=== PATIENT | male | born 1950 | race Caucasian/White ===

== ENCOUNTER 2017-06-21 07:41 | Inpatient (IN) | payer OTHER, MEDICARE ==
[~2017-06-21] VITALS: Ht 175.3 cm; Wt 66.0 kg
[2017-06-21] MEDS ORDERED: SODIUM CHLORIDE 0.9% 1,000 ML IV ONE (08:11)
[2017-06-21] MEDS ORDERED: ONDANSETRON 2MG/ML, 2ML ONE (08:15)
[2017-06-21] MEDS ORDERED: FAMOTIDINE 20 MG/2 ML ONE (08:15)
[2017-06-21 08:28] LABS: HEMATOCRIT 53.4 % (39.2-51.8); HEMOGLOBIN 18.2 g/dL (13.7-18.0); WHITE BLOOD COUNT 18.4 x10^3/uL (3.4-10)
[2017-06-21] MEDS ORDERED: ONDANSETRON 2MG/ML, 2ML IVPush ONE (08:30)
[2017-06-21] MEDS ORDERED: SODIUM CHLORIDE 0.9% 1,000ML IVBOLUS ONE (08:30)
[2017-06-21] MEDS ORDERED: FAMOTIDINE 20 MG/2 ML IVP ONE (08:30)
[2017-06-21 08:41] LABS: ASPARTATE AMINO TRANSFERASE 60 U/L (15-37); BLOOD UREA NITROGEN 26 mg/dL (7-18)
[2017-06-21] MEDS ORDERED: POTASSIUM CHLORIDE 40 MEQ in SODIUM CHLORIDE 0.9% 500 ML IV ONE (09:30)
[2017-06-21] MEDS ORDERED: DOCUSATE 100 MG CAPSULE PO PRN (11:30)
[2017-06-21] MEDS ORDERED: BISACODYL 10 MG SUPP PR PRN (11:30)
[2017-06-21] MEDS ORDERED: ACETAMINOPHEN 325 MG TABLET PO PRN (11:30)
[2017-06-21] MEDS ORDERED: HYDROcodone/APAP 5/325 TABLET PO PRN (11:30)
[2017-06-21] MEDS ORDERED: morphine SULFATE 10 MG/ML, 1ML IVPush PRN (11:30)
[2017-06-21] MEDS ORDERED: POLYETHYLENE GLYCOL 17 GM PACKET PO PRN (11:30)
[2017-06-21] MEDS ORDERED: LABETALOL 5MG/ML, 20ML IVPush PRN (11:30)
[2017-06-21] MEDS ORDERED: PLEASE ENTER ALLERGIES MC SCH ×2 (11:30)
[2017-06-21] MEDS: ONDANSETRON 2MG/ML, 2ML IVPush PRN ×2 (12:59→19:44)
[2017-06-21] MEDS: NS + 20MEQ KCL 1,000 ML IV SCH ×2 (12:59→23:13)
[2017-06-21] MEDS: HEPARIN 5,000 UNITS/ML, 1ML SQ SCH ×2 (13:00→20:40)
[2017-06-21 13:35] VITALS: BP 144/78
[2017-06-21 13:42] LABS: RAPID INFLUENZA A Negative (Negative); RAPID INFLUENZA B Negative (Negative)
[2017-06-21] MEDS: POTASSIUM CHLORIDE 20 MEQ TAB.ER.PRT PO SCH (17:00)
[2017-06-21] MEDS ORDERED: DIPHENHYDRAMINE 50 MG/ML, 1ML IVPush PRN (17:30)
[2017-06-21 18:33] VITALS: BP 146/85
[2017-06-22 01:40] VITALS: BP 148/95
[2017-06-22] MEDS: ONDANSETRON 2MG/ML, 2ML IVPush PRN ×3 (01:45→19:19)
[2017-06-22 05:46] LABS: HEMATOCRIT 44.4 % (39.2-51.8); HEMOGLOBIN 15.2 g/dL (13.7-18.0); WHITE BLOOD COUNT 11.3 x10^3/uL (3.4-10)
[2017-06-22] MEDS: NS + 20MEQ KCL 1,000 ML IV SCH ×3 (05:56→21:37)
[2017-06-22] MEDS: HEPARIN 5,000 UNITS/ML, 1ML SQ SCH ×3 (05:57→21:37)
[2017-06-22 06:05] LABS: ASPARTATE AMINO TRANSFERASE 39 U/L (15-37); BLOOD UREA NITROGEN 21 mg/dL (7-18)
[2017-06-22 06:44] VITALS: BP 133/82
[2017-06-22] MEDS: POTASSIUM CHLORIDE 20 MEQ TAB.ER.PRT PO SCH ×2 (08:00→17:00)
[2017-06-22 15:01] VITALS: BP 158/82
[2017-06-22 19:44] VITALS: BP 118/67
[2017-06-23 00:39] VITALS: BP 127/70
[2017-06-23] MEDS: ONDANSETRON 2MG/ML, 2ML IVPush PRN ×3 (01:12→17:03)
[2017-06-23] MEDS: HEPARIN 5,000 UNITS/ML, 1ML SQ SCH ×3 (05:20→22:00)
[2017-06-23] MEDS: NS + 20MEQ KCL 1,000 ML IV SCH ×3 (05:20→23:01)
[2017-06-23 05:43] LABS: HEMATOCRIT 41.1 % (39.2-51.8); HEMOGLOBIN 14.2 g/dL (13.7-18.0); WHITE BLOOD COUNT 8.3 x10^3/uL (3.4-10)
[2017-06-23 05:51] LABS: ASPARTATE AMINO TRANSFERASE 27 U/L (15-37); BLOOD UREA NITROGEN 16 mg/dL (7-18)
[2017-06-23 07:20] VITALS: BP 149/75
[2017-06-23] MEDS: POTASSIUM CHLORIDE 20 MEQ TAB.ER.PRT PO SCH ×2 (10:05→15:01)
[2017-06-23 12:15] VITALS: BP 164/78
[2017-06-23 19:43] VITALS: BP 147/78
[2017-06-24 01:35] VITALS: BP 125/66
[2017-06-24] MEDS: NS + 20MEQ KCL 1,000 ML IV SCH ×2 (04:40→11:52)
[2017-06-24 05:29] LABS: HEMATOCRIT 42.7 % (39.2-51.8); HEMOGLOBIN 14.6 g/dL (13.7-18.0); WHITE BLOOD COUNT 8.6 x10^3/uL (3.4-10)
[2017-06-24 05:41] LABS: BLOOD UREA NITROGEN 14 mg/dL (7-18)
[2017-06-24 05:46] LABS: ASPARTATE AMINO TRANSFERASE 33 U/L (15-37)
[2017-06-24] MEDS: HEPARIN 5,000 UNITS/ML, 1ML SQ SCH ×2 (06:00→16:12)
[2017-06-24 06:50] VITALS: BP 130/74
[2017-06-24] MEDS: POTASSIUM CHLORIDE 20 MEQ TAB.ER.PRT PO SCH (08:00)
[2017-06-24] MEDS ORDERED: PANTOPRAZOLE 40 MG IV IVPush SCH (09:00)
[2017-06-24] MEDS ORDERED: MIDAZOLAM 1 MG/ML, 5ML ONE (10:04)
[2017-06-24] MEDS ORDERED: FENTANYL PF 100 MCG/2ML ONE (10:04)
[2017-06-24] MEDS: ONDANSETRON 2MG/ML, 2ML IVPush PRN (12:30)
[2017-06-24 12:35] VITALS: BP 162/96
[2017-06-24] MEDS ORDERED: SUCRALFATE 1 GM/10 ML UDC PO SCH (16:00)
[2017-06-24] MEDS ORDERED: SUCR1ORA5 PO (16:26)
[2017-06-24] MEDS ORDERED: PANT40TA3 PO (16:26)
== END 2017-06-24 18:51 | disposition home or self-care (01) | DRG 441 ==
LOC: ED 10:24 → EDIP 11:15 → 3NE 12:05
PROVIDERS: ADMIT Internal Medicine; ATTEND Internal Medicine
PROC: 0DB68ZX Excision of Stomach, Via Natural or Artificial Opening Endoscopic, Diagnostic (ICD-10-PCS; 2017-06-24)
PROC: 0DB98ZX Excision of Duodenum, Via Natural or Artificial Opening Endoscopic, Diagnostic (ICD-10-PCS; principal; 2017-06-24 10:30)
DX: K72.00 Acute and subacute hepatic failure without coma (principal); N17.0 Acute kidney failure with tubular necrosis; D75.1 Secondary polycythemia; E87.1 Hypo-osmolality and hyponatremia; E86.9 Volume depletion, unspecified; K20.9 Esophagitis, unspecified; E87.6 Hypokalemia; F17.210 Nicotine dependence, cigarettes, uncomplicated; D72.829 Elevated white blood cell count, unspecified; K29.60 Other gastritis without bleeding; K29.80 Duodenitis without bleeding; Z82.49 Family history of ischemic heart disease and other diseases of the circulatory system; Z80.9 Family history of malignant neoplasm, unspecified; Z90.49 Acquired absence of other specified parts of digestive tract; Z90.89 Acquired absence of other organs
CPT/HCPCS: 36415; 71010; 74245; 76700; 80053; 81001; 83690; 83735; 85025; 87046; 87086; 87324; 87400; 87798; 87899; 88305; 93005; 96361; 96365; 96366; 96375; 99152; 99153; J1644; J2250; J2405; J3010; J3480; J1200; J7030; J7040; S0028

== ENCOUNTER → 2018-03-22 | Outpatient (CLI) | payer OTHER, MEDICARE ==
[~2018-03-22] MED LIST: OMNIPAQUE 350 MG/ML, 100ML BOTTLE ONE; PANT40TA3 PO; SUCR1ORA5 PO
== END | disposition home or self-care (01) ==
LOC: CFH 09:42
PROVIDERS: ATTEND Nurse Practitioner Family
DX: K57.90 Diverticulosis of intestine, part unspecified, without perforation or abscess without bleeding (principal); N32.89 Other specified disorders of bladder; I70.0 Atherosclerosis of aorta; K76.0 Fatty (change of) liver, not elsewhere classified; F17.200 Nicotine dependence, unspecified, uncomplicated
CPT/HCPCS: 74177; 82565; Q9967

== ENCOUNTER 2018-05-01 13:57 | Emergency (ER) | payer OTHER, MEDICARE ==
[~2018-05-01] VITALS: Ht 170.2 cm; Wt 67.6 kg
[~2018-05-01 13:57] MED LIST changes: -OMNIPAQUE 350 MG/ML, 100ML BOTTLE ONE
[2018-05-01] MEDS ORDERED: ONDANSETRON 2MG/ML, 2ML IVPush ONE (14:30)
[2018-05-01] MEDS ORDERED: SODIUM CHLORIDE FLUSH 10ML SYR IVF ONE (14:30)
[2018-05-01] MEDS ORDERED: MORPHINE SULFATE 4 MG/ML, 1ML IVPush PRN (14:30)
[2018-05-01] MEDS ORDERED: SODIUM CHLORIDE 0.9% 1,000ML IVBOLUS ONE (14:30)
[2018-05-01] MEDS ORDERED: ONDANSETRON 2MG/ML, 2ML ONE (14:33)
[2018-05-01 14:49] LABS: BASOPHILS # (AUTO) 0.02 x10^3/uL (0-0.1); BASOPHILS % (AUTO) 0 % (0-1); EOSINOPHILS # (AUTO) 0.09 x10^3/uL (0-0.4); EOSINOPHILS % (AUTO) 1 % (1-7); LYMPHOCYTES # (AUTO) 2.25 x10^3/uL (1-3.4); LYMPHOCYTES % (AUTO) 19 % (22-44); MD NO; MEAN CORPUSCULAR HEMOGLOBIN 30.9 pg (27.5-34.5); MEAN CORPUSCULAR HGB CONC 33.3 g/dL (33.2-36.2); MEAN PLATELET VOLUME 9.4 fL (7.4-10.4); MONOCYTES # (AUTO) 0.78 x10^3/uL (0.2-0.8); MONOCYTES % (AUTO) 7 % (2-9); NEUTROPHILS # (AUTO) 8.67 x10^3/uL (1.8-6.8); NEUTROPHILS % (AUTO) 74 % (42-75); PLATELET COUNT 282 x10^3/uL (130-400); RED BLOOD COUNT 5.81 x10^6/uL (4.38-5.82); RED CELL DISTRIBUTION WIDTH 14.7 % (9.4-14.8)
[2018-05-01 14:59] LABS: ANION GAP 14 mmol/L (5-15); CALCIUM 9.2 mg/dL (8.5-10.1); CHLORIDE 99 mmol/L (98-107); CREATININE 1.37 mg/dL (0.7-1.3)
[2018-05-01 15:30] LABS: MICROSCOPIC INDICATED
[2018-05-01] MEDS ORDERED: METOCLOPRAMIDE 5 MG/ML, 2ML IVPush ONE (15:30)
[2018-05-01 15:31] LABS: CULTURE INDICATED? YES
[2018-05-01] MEDS ORDERED: METOCLOPRAMIDE 5 MG/ML, 2ML ONE (16:12)
[2018-05-01] MEDS ORDERED: OMNIPAQUE 350 MG/ML, 100ML BOTTLE ONE (16:45)
[2018-05-01 18:20] VITALS: BP 129/72
== END 2018-05-01 18:43 | disposition home or self-care (01) ==
LOC: ED 14:07
DX: R10.84 Generalized abdominal pain (principal); R11.2 Nausea with vomiting, unspecified; F17.200 Nicotine dependence, unspecified, uncomplicated
CPT/HCPCS: 36415; 74177; 80048; 81001; 82040; 85025; 87086; 96361; 96374; 96375; 99285; J2405; J2765; J7030; Q9967

== ENCOUNTER 2018-11-05 12:04 | Emergency (ER) | payer OTHER, MEDICARE ==
[~2018-11-05] VITALS: Ht 170.2 cm; Wt 70.0 kg
[2018-11-05] MEDS ORDERED: SODIUM CHLORIDE FLUSH 10ML SYR IVF ONE (12:30)
[2018-11-05] MEDS ORDERED: METOCLOPRAMIDE 5 MG/ML, 2ML IVPush ONE (12:30)
[2018-11-05] MEDS ORDERED: SODIUM CHLORIDE 0.9% 1,000ML IVBOLUS ONE ×2 (12:30→14:00)
[2018-11-05] MEDS ORDERED: METOCLOPRAMIDE 5 MG/ML, 2ML ONE (12:33)
--- NOTE | 2018-11-05 12:36 | NUR ---
DIARRHEA AND VOMITING SINCE MONDAY. PT NOW STARTING TO FEEL WEAK AND DEHYDRATED WITH DECREASED URINE OUTPUT. PT THROWING UP ON ARRIVAL TO ROOM FROM LOBBY.
[2018-11-05 12:41] LABS: BASOPHILS % (AUTO) 0 % (0-1); EOSINOPHILS # (AUTO) 0.05 x10^3/uL (0-0.4); EOSINOPHILS % (AUTO) 0 % (1-7); LYMPHOCYTES # (AUTO) 1.04 x10^3/uL (1-3.4); LYMPHOCYTES % (AUTO) 6 % (22-44); MD NO; MEAN CORPUSCULAR HEMOGLOBIN 31.3 pg (27.5-34.5); MEAN CORPUSCULAR HGB CONC 33.8 g/dL (33.2-36.2); MEAN CORPUSCULAR VOLUME 92.8 fL (81-97); MEAN PLATELET VOLUME 9.6 fL (7.4-10.4); MONOCYTES # (AUTO) 0.31 x10^3/uL (0.2-0.8); MONOCYTES % (AUTO) 2 % (2-9); NEUTROPHILS # (AUTO) 15.43 x10^3/uL (1.8-6.8); NEUTROPHILS % (AUTO) 92 % (42-75); PLATELET COUNT 254 x10^3/uL (130-400); RED BLOOD COUNT 6.43 x10^6/uL (4.38-5.82); RED CELL DISTRIBUTION WIDTH 15.1 % (9.4-14.8)
--- NOTE | 2018-11-05 12:58 | NUR ---
MEDICATED FOR N/V AND IV BOLUS INFUSING
[2018-11-05 13:06] LABS: CHLORIDE 107 mmol/L (98-107)
[2018-11-05 13:24] LABS: ALANINE AMINOTRANSFERASE 23 U/L (12-78); ALKALINE PHOSPHATASE 204 U/L (45-117); ANION GAP 18 mmol/L (5-15); BILIRUBIN,TOTAL 1.8 mg/dL (0.2-1.0); CALCIUM 10.6 mg/dL (8.5-10.1); CREATININE 1.82 mg/dL (0.7-1.3); TOTAL PROTEIN 9.9 g/dL (6.4-8.2)
[2018-11-05 13:29] LABS: TROPONIN I < 0.015 ng/mL (0.000-0.045)
[2018-11-05] MEDS ORDERED: SODIUM CHLORIDE 0.9% 1,000 ML IV ONE (14:00)
[2018-11-05] MEDS ORDERED: ONDANSETRON 2MG/ML, 2ML ONE (14:06)
[2018-11-05 14:10] VITALS: BP 166/93
--- NOTE | 2018-11-05 14:11 | NUR ---
ADDITIONALLY MEDICATED FOR N/V, SECOND LITER OF FLUIDS INFUSING AND PT TO CT
[2018-11-05] MEDS ORDERED: ONDANSETRON 2MG/ML, 2ML IVPush ONE (14:30)
[2018-11-05] MEDS ORDERED: METRONIDAZOLE PMX 500MG/100ML 100 ML ONE (15:16)
[2018-11-05 15:25] LABS: MICROSCOPIC INDICATED
[2018-11-05] MEDS ORDERED: METRONIDAZOLE PMX 500MG/100ML 100 ML IV ONE (15:30)
[2018-11-05] MEDS ORDERED: AMPICILLIN/SULBACTAM 3 GM in SODIUM CHLORIDE 0.9% 100 ML IV ONE (15:30)
[2018-11-05 15:32] LABS: CULTURE INDICATED? NO
--- NOTE | 2018-11-05 16:34 | NUR ---
PT RESTING WITH EYES CLOSED. HAS NOT VOMITED SINCE LAST MEDICATED. SECOND ANTIBIOTIC STARTED.
== END 2018-11-05 17:20 | disposition home or self-care (01) ==
LOC: ED 13:29
DX: A09 Infectious gastroenteritis and colitis, unspecified (principal); E86.9 Volume depletion, unspecified; E86.0 Dehydration; N28.9 Disorder of kidney and ureter, unspecified
CPT/HCPCS: 36415; 74022; 74176; 80053; 81001; 83605; 83690; 84484; 85025; 93005; 96361; 96365; 96368; 96375; 99284; J0295; J2405; J2765; J7030

== ENCOUNTER 2018-11-07 14:28 | Inpatient (IN) | payer OTHER, MEDICARE ==
[~2018-11-07] VITALS: Ht 170.2 cm; Wt 72.3 kg
--- NOTE | 2018-11-07 14:49 | NUR ---
SHRIMP PICKER: PT CALLED FOR ROOM, IN LAB OFFICE FOR BLOOD DRAW.
--- NOTE | 2018-11-07 14:51 | NUR ---
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
[2018-11-07 15:13] LABS: ALBUMIN 3.8 g/dL (3.4-5.0); ANION GAP 10 mmol/L (5-15); CALCIUM 8.9 mg/dL (8.5-10.1); CHLORIDE 105 mmol/L (98-107); MD NO
--- NOTE | 2018-11-07 15:16 | NUR ---
FIRST CONTACT WITH PT. PT SITTING UP IN [place] NOTED. PT REPORTS CONTINUED NAUSEA/VOMITING DESPITE MEDICATIONS RX'D ON 11/05. PT REPORTS BEING SEEN IN ED FOR SAME 11/05, DX WITH COLITIS AND ACUTE RENAL FAILURE AND ADVISED FOR ADMIT. PT REPORTS HE REFUSED ADMIT BECAUSE "IT WAS TOO COLD IN HERE". RX'D FLAGYL, AMOXICILLIN AND ZOFRAN PER . PT STATES "I'VE BEEN TRYING TO TAKE IT, I CAN'T HOLD IT DOWN". BP/SPO2 MONITOR IN PLACE. ERP AT BEDSIDE FOR INITIAL ASSESSMENT.
[2018-11-07 15:19] LABS: ALANINE AMINOTRANSFERASE 19 U/L (12-78); ALKALINE PHOSPHATASE 123 U/L (45-117); BILIRUBIN,TOTAL 1.7 mg/dL (0.2-1.0); CREATININE 0.98 mg/dL (0.7-1.3); TOTAL PROTEIN 7.7 g/dL (6.4-8.2)
--- NOTE | 2018-11-07 15:19 | NUR ---
REPORT TO ЕЛЕНА PANDA
[2018-11-07] MEDS ORDERED: GABAPENTIN (15:20)
[2018-11-07] MEDS ORDERED: ONDA4TAB7 PO (15:20)
[2018-11-07] MEDS ORDERED: AMOXICILLIN (15:20)
[2018-11-07] MEDS ORDERED: FLAGYL (15:20)
--- NOTE | 2018-11-07 15:22 | NUR ---
REPORT FROM TONI CHRISTIANSEN, ASSUME CARE OF PT AT THIS TIME.
[2018-11-07 15:24] LABS: BASOPHILS # (AUTO) 0.04 x10^3/uL (0-0.1); BASOPHILS % (AUTO) 0 % (0-1); EOSINOPHILS # (AUTO) 0.07 x10^3/uL (0-0.4); EOSINOPHILS % (AUTO) 1 % (1-7); LYMPHOCYTES # (AUTO) 1.69 x10^3/uL (1-3.4); LYMPHOCYTES % (AUTO) 17 % (22-44); MEAN CORPUSCULAR HEMOGLOBIN 31.7 pg (27.5-34.5); MEAN CORPUSCULAR HGB CONC 34.1 g/dL (33.2-36.2); MEAN CORPUSCULAR VOLUME 93.1 fL (81-97); MEAN PLATELET VOLUME 9.1 fL (7.4-10.4); MONOCYTES # (AUTO) 0.66 x10^3/uL (0.2-0.8); MONOCYTES % (AUTO) 7 % (2-9); NEUTROPHILS # (AUTO) 7.71 x10^3/uL (1.8-6.8); NEUTROPHILS % (AUTO) 76 % (42-75); PLATELET COUNT 217 x10^3/uL (130-400); RED CELL DISTRIBUTION WIDTH 14.8 % (9.4-14.8)
[2018-11-07] MEDS ORDERED: ONDANSETRON 2MG/ML, 2ML IVPush ONE (15:30)
[2018-11-07] MEDS ORDERED: SODIUM CHLORIDE 0.9% 1,000ML IVBOLUS ONE (15:30)
[2018-11-07] MEDS ORDERED: SODIUM CHLORIDE FLUSH 10ML SYR IVF ONE (15:30)
[2018-11-07] MEDS ORDERED: ONDANSETRON 2MG/ML, 2ML ONE (15:59)
--- NOTE | 2018-11-07 16:15 | NUR ---
PT MEDICATED WITH ZOFRAN WITHOUT RELIEF-ERP NOTIFIED. URINE COLLECTED/SENT TO LAB. ERP IN TO REASSESS. CALL LIGHT WITHIN REACH.
[2018-11-07] MEDS ORDERED: PROMETHAZINE 25 MG/ML, 1ML ONE (16:21)
[2018-11-07] MEDS ORDERED: MORPHINE SULFATE 4 MG/ML, 1ML ONE (16:22)
--- NOTE | 2018-11-07 16:27 | NUR ---
PT MEDICATED FOR 4/10 ABD PAIN AND NAUSEA. AWAITING UA RESULTS AND POSSIBLE ADMISSION. VSS/UPDATED IN COMPUTER.
[2018-11-07] MEDS ORDERED: morphine SULFATE 10 MG/ML, 1ML IVPush ONE (16:30)
[2018-11-07] MEDS ORDERED: PROMETHAZINE 25 MG/ML, 1ML IM ONE (16:30)
[2018-11-07 16:49] LABS: MICROSCOPIC AUTO
[2018-11-07 16:50] LABS: CULTURE INDICATED? NO
[2018-11-07] MEDS ORDERED: hydrALAzine 20 MG/ML, 1ML IVPush PRN (17:00)
[2018-11-07] MEDS ORDERED: ONDANSETRON 2MG/ML, 2ML IVPush PRN (17:00)
[2018-11-07] MEDS ORDERED: morphine SULFATE 10 MG/ML, 1ML IVPush PRN (17:00)
[2018-11-07] MEDS ORDERED: ACETAMINOPHEN 325 MG TABLET PO PRN (17:00)
--- NOTE | 2018-11-07 17:01 | NUR ---
ATTEMPT TO CALL REPORT, RN NOT AVAILABLE AND WILL CALL BACK.
[2018-11-07 18:36] VITALS: BP 172/96
[2018-11-07] MEDS: NICOTINE 14MG/24 HR PATCH.TD24 TD SCH (19:53)
[2018-11-07] MEDS: GABAPENTIN 100 MG CAPSULE PO SCH (19:53)
[2018-11-07] MEDS: D5%-0.45NACL+KCL 20MEQ 1,000 ML IV SCH (19:54)
[2018-11-07] MEDS: ENOXAPARIN 40 MG/0.4 ML SQ SCH (19:55)
[2018-11-07] MEDS: CEFTRIAXONE PMX 1GM/50ML 50 ML IV SCH (19:56)
[2018-11-07 20:40] VITALS: BP 148/77
[2018-11-07] MEDS: METRONIDAZOLE PMX 500MG/100ML 100 ML IV SCH (21:19)
[2018-11-07] MEDS: PROMETHAZINE 25 MG/ML, 1ML IM PRN (21:49)
[2018-11-08 01:40] VITALS: BP 138/87
[2018-11-08] MEDS: D5%-0.45NACL+KCL 20MEQ 1,000 ML IV SCH ×2 (05:21→13:49)
[2018-11-08] MEDS: PROMETHAZINE 25 MG/ML, 1ML IM PRN ×2 (05:21→19:38)
[2018-11-08] MEDS: METRONIDAZOLE PMX 500MG/100ML 100 ML IV SCH ×3 (05:21→21:10)
[2018-11-08 05:45] LABS: BASOPHILS # (AUTO) 0.03 x10^3/uL (0-0.1); BASOPHILS % (AUTO) 0 % (0-1); EOSINOPHILS % (AUTO) 1 % (1-7); LYMPHOCYTES # (AUTO) 1.67 x10^3/uL (1-3.4); LYMPHOCYTES % (AUTO) 15 % (22-44); MD NO; MEAN CORPUSCULAR HEMOGLOBIN 31.8 pg (27.5-34.5); MEAN CORPUSCULAR HGB CONC 34.2 g/dL (33.2-36.2); MEAN CORPUSCULAR VOLUME 92.9 fL (81-97); MEAN PLATELET VOLUME 9.1 fL (7.4-10.4); MONOCYTES # (AUTO) 0.84 x10^3/uL (0.2-0.8); MONOCYTES % (AUTO) 8 % (2-9); NEUTROPHILS # (AUTO) 8.53 x10^3/uL (1.8-6.8); NEUTROPHILS % (AUTO) 76 % (42-75); PLATELET COUNT 189 x10^3/uL (130-400); RED BLOOD COUNT 4.89 x10^6/uL (4.38-5.82)
[2018-11-08 06:00] LABS: CHLORIDE 108 mmol/L (98-107)
[2018-11-08 06:01] LABS: ALBUMIN 3.3 g/dL (3.4-5.0); ANION GAP 8 mmol/L (5-15); CALCIUM 8.6 mg/dL (8.5-10.1)
[2018-11-08 06:06] LABS: ALANINE AMINOTRANSFERASE 15 U/L (12-78); ALKALINE PHOSPHATASE 107 U/L (45-117); BILIRUBIN, DIRECT 0.2 mg/dL (0.1-0.2); BILIRUBIN,INDIRECT 1.3 mg/dL (0.0-2.0); BILIRUBIN,TOTAL 1.5 mg/dL (0.2-1.0); CREATININE 0.84 mg/dL (0.7-1.3); TOTAL PROTEIN 6.6 g/dL (6.4-8.2)
[2018-11-08 07:09] VITALS: BP 135/77
[2018-11-08] MEDS: GABAPENTIN 100 MG CAPSULE PO SCH ×3 (08:36→19:42)
[2018-11-08 13:20] VITALS: BP 121/65
[2018-11-08 13:51] VITALS: BP 138/72
[2018-11-08] MEDS: NICOTINE 14MG/24 HR PATCH.TD24 TD SCH (16:23)
[2018-11-08 16:39] LABS: CLOSTRIDIUM DIFFICILE ANTIGEN POSITIVE; CLOSTRIDIUM DIFFICILE TOXIN NEGATIVE (Negative)
[2018-11-08] MEDS ORDERED: OMNIPAQUE 350 MG/ML, 100ML BOTTLE ONE (18:35)
[2018-11-08 19:01] VITALS: BP 152/62
[2018-11-08] MEDS: ENOXAPARIN 40 MG/0.4 ML SQ SCH (19:38)
[2018-11-08] MEDS: CEFTRIAXONE PMX 1GM/50ML 50 ML IV SCH (19:38)
[2018-11-08] MEDS: VANCOMYCIN 50 MG/ML ORAL SUSP PO SCH (19:38)
[2018-11-08] MEDS: HYDROcodone/APAP 5/325 TABLET PO PRN (21:11)
[2018-11-09] MEDS: VANCOMYCIN 50 MG/ML ORAL SUSP PO SCH ×2 (01:11→08:44)
[2018-11-09] MEDS: D5%-0.45NACL+KCL 20MEQ 1,000 ML IV SCH ×3 (01:11→21:34)
[2018-11-09 01:20] VITALS: BP 127/83
[2018-11-09] MEDS: METRONIDAZOLE PMX 500MG/100ML 100 ML IV SCH (05:24)
[2018-11-09] MEDS: PROMETHAZINE 25 MG/ML, 1ML IM PRN ×3 (05:32→21:33)
[2018-11-09 06:01] LABS: BASOPHILS # (AUTO) 0.02 x10^3/uL (0-0.1); BASOPHILS % (AUTO) 0 % (0-1); EOSINOPHILS # (AUTO) 0.24 x10^3/uL (0-0.4); EOSINOPHILS % (AUTO) 3 % (1-7); LYMPHOCYTES # (AUTO) 1.59 x10^3/uL (1-3.4); LYMPHOCYTES % (AUTO) 21 % (22-44); MD NO; MEAN CORPUSCULAR HEMOGLOBIN 31.5 pg (27.5-34.5); MEAN CORPUSCULAR HGB CONC 33.7 g/dL (33.2-36.2); MEAN CORPUSCULAR VOLUME 93.4 fL (81-97); MEAN PLATELET VOLUME 9.3 fL (7.4-10.4); MONOCYTES # (AUTO) 0.55 x10^3/uL (0.2-0.8); MONOCYTES % (AUTO) 7 % (2-9); NEUTROPHILS # (AUTO) 5.01 x10^3/uL (1.8-6.8); NEUTROPHILS % (AUTO) 68 % (42-75); PLATELET COUNT 169 x10^3/uL (130-400); RED BLOOD COUNT 4.78 x10^6/uL (4.38-5.82); RED CELL DISTRIBUTION WIDTH 15.1 % (9.4-14.8)
[2018-11-09 06:10] LABS: ALBUMIN 3.1 g/dL (3.4-5.0); ANION GAP 7 mmol/L (5-15); CALCIUM 8.3 mg/dL (8.5-10.1); CHLORIDE 107 mmol/L (98-107)
[2018-11-09 06:15] LABS: ALANINE AMINOTRANSFERASE 13 U/L (12-78); ALKALINE PHOSPHATASE 95 U/L (45-117); BILIRUBIN,TOTAL 1.4 mg/dL (0.2-1.0); CREATININE 0.85 mg/dL (0.7-1.3); TOTAL PROTEIN 6.2 g/dL (6.4-8.2)
[2018-11-09 08:00] VITALS: BP 166/84
[2018-11-09] MEDS: GABAPENTIN 100 MG CAPSULE PO SCH (08:44)
[2018-11-09 13:11] VITALS: BP 145/84
[2018-11-09] MEDS ORDERED: GABAPENTIN 100 MG CAPSULE PO PRN (14:30)
[2018-11-09] MEDS: NICOTINE 14MG/24 HR PATCH.TD24 TD SCH (17:00)
[2018-11-09] MEDS: ENOXAPARIN 40 MG/0.4 ML SQ SCH (21:34)
[2018-11-09 21:36] VITALS: BP 148/76
[2018-11-10 00:40] VITALS: BP 148/76
[2018-11-10] MEDS: D5%-0.45NACL+KCL 20MEQ 1,000 ML IV SCH ×2 (05:04→20:13)
[2018-11-10 06:09] LABS: CHLORIDE 108 mmol/L (98-107)
[2018-11-10 06:18] LABS: ALANINE AMINOTRANSFERASE 13 U/L (12-78); ALBUMIN 3.2 g/dL (3.4-5.0); ALKALINE PHOSPHATASE 94 U/L (45-117); ANION GAP 8 mmol/L (5-15); BILIRUBIN,TOTAL 1.5 mg/dL (0.2-1.0); CALCIUM 8.3 mg/dL (8.5-10.1); CREATININE 0.91 mg/dL (0.7-1.3); TOTAL PROTEIN 6.3 g/dL (6.4-8.2)
[2018-11-10 06:42] VITALS: BP 135/78
[2018-11-10] MEDS: PANTOPRAZOLE 40 MG IV IV SCH ×2 (08:59→22:35)
[2018-11-10] MEDS ORDERED: FENTANYL PF 100 MCG/2ML ONE (09:22)
[2018-11-10] MEDS ORDERED: MIDAZOLAM 1 MG/ML, 5ML ONE ×2 (09:23)
[2018-11-10] MEDS: SUCRALFATE 1 GM/10 ML UDC PO SCH ×3 (12:00→22:35)
[2018-11-10 12:22] VITALS: BP 114/71
[2018-11-10] MEDS: HYDROcodone/APAP 5/325 TABLET PO PRN ×2 (15:47→22:35)
[2018-11-10] MEDS: NICOTINE 14MG/24 HR PATCH.TD24 TD SCH (16:59)
[2018-11-10 19:26] VITALS: BP 150/71
[2018-11-11 00:32] VITALS: BP 136/69
[2018-11-11] MEDS: D5%-0.45NACL+KCL 20MEQ 1,000 ML IV SCH ×2 (04:43→12:00)
[2018-11-11 05:54] LABS: BASOPHILS # (AUTO) 0.04 x10^3/uL (0-0.1); BASOPHILS % (AUTO) 1 % (0-1); EOSINOPHILS # (AUTO) 0.44 x10^3/uL (0-0.4); EOSINOPHILS % (AUTO) 7 % (1-7); LYMPHOCYTES # (AUTO) 2.33 x10^3/uL (1-3.4); LYMPHOCYTES % (AUTO) 35 % (22-44); MD NO; MEAN CORPUSCULAR HEMOGLOBIN 31.1 pg (27.5-34.5); MEAN CORPUSCULAR HGB CONC 33.2 g/dL (33.2-36.2); MEAN CORPUSCULAR VOLUME 93.5 fL (81-97); MEAN PLATELET VOLUME 9.5 fL (7.4-10.4); MONOCYTES # (AUTO) 0.52 x10^3/uL (0.2-0.8); MONOCYTES % (AUTO) 8 % (2-9); NEUTROPHILS # (AUTO) 3.31 x10^3/uL (1.8-6.8); NEUTROPHILS % (AUTO) 50 % (42-75); PLATELET COUNT 190 x10^3/uL (130-400); RED BLOOD COUNT 4.64 x10^6/uL (4.38-5.82); RED CELL DISTRIBUTION WIDTH 14.8 % (9.4-14.8)
[2018-11-11 05:58] LABS: ALANINE AMINOTRANSFERASE 18 U/L (12-78); ALBUMIN 2.9 g/dL (3.4-5.0); ANION GAP 5 mmol/L (5-15); CALCIUM 8.5 mg/dL (8.5-10.1); CHLORIDE 109 mmol/L (98-107); CREATININE 0.93 mg/dL (0.7-1.3)
[2018-11-11 06:01] LABS: ALKALINE PHOSPHATASE 83 U/L (45-117); TOTAL PROTEIN 5.8 g/dL (6.4-8.2)
[2018-11-11] MEDS: SUCRALFATE 1 GM/10 ML UDC PO SCH ×3 (07:00→16:00)
[2018-11-11 07:05] VITALS: BP 139/88
[2018-11-11] MEDS ORDERED: SINCALIDE (KINEVAC) 5 MCG ONE (08:27)
[2018-11-11] MEDS: PANTOPRAZOLE 40 MG IV IV SCH (10:15)
[2018-11-11] MEDS ORDERED: PANT40TA3 PO (13:56)
[2018-11-11] MEDS ORDERED: ONDA4TAB7 PO (13:56)
[2018-11-11] MEDS ORDERED: SUCR1ORA5 PO (13:56)
[2018-11-11 14:08] VITALS: BP 148/88
[2018-11-11] MEDS: NICOTINE 14MG/24 HR PATCH.TD24 TD SCH (16:07)
== END 2018-11-11 16:26 | disposition home or self-care (01) | DRG 392 ==
LOC: ED 15:17 → EDIP 15:18 → ED 16:09 → OBSVTOIN 16:27 → 3NE 17:01
PROVIDERS: ADMIT Orthopaedic Surgery; ATTEND Orthopaedic Surgery
PROC: 0DJ08ZZ Inspection of Upper Intestinal Tract, Via Natural or Artificial Opening Endoscopic (ICD-10-PCS; principal; 2018-11-10 11:30)
DX: K21.0 Gastro-esophageal reflux disease with esophagitis (principal); E86.0 Dehydration; F17.210 Nicotine dependence, cigarettes, uncomplicated; J06.9 Acute upper respiratory infection, unspecified; K57.90 Diverticulosis of intestine, part unspecified, without perforation or abscess without bleeding; E80.6 Other disorders of bilirubin metabolism; N28.9 Disorder of kidney and ureter, unspecified; Z80.3 Family history of malignant neoplasm of breast; Z80.52 Family history of malignant neoplasm of bladder
CPT/HCPCS: 36415; 84145; 87046; 87427; 96361; 99285; J3370; 74177; 78227; 80053; 81001; 82247; 82248; 83605; 83690; 85025; 87040; 87324; 87493; 87798; 89055; 96372; 96374; 96375; 99152; 99153; G0378; J0696; J1650; J2250; J2405; J2550; J3010; Q9967; A9537; C9113; C9898; J0360; J2270; J2805; J3480; J7030

== ENCOUNTER 2018-12-28 12:03 | Inpatient (IN) | payer OTHER, MEDICARE ==
[~2018-12-28] VITALS: Ht 170.2 cm; Wt 73.0 kg
[~2018-12-28 12:03] MED LIST changes: +AMOXICILLIN; +FLAGYL; +GABAPENTIN; +ONDA4TAB7 PO
--- NOTE | 2018-12-28 12:25 | NUR ---
PT C/O N/V FOR 3 DAYS WITH NO BM FOR THREE DAYS. PT ON MONITOR. WAITING FOR ORDERS.
[2018-12-28] MEDS ORDERED: ONDANSETRON 2MG/ML, 2ML IVPush ONE (12:30)
[2018-12-28] MEDS ORDERED: SODIUM CHLORIDE FLUSH 10ML SYR IVF ONE (12:30)
[2018-12-28] MEDS ORDERED: MAALOX/HYOSCYAMINE/LIDOCAINE 45 ML BTL ONE (12:36)
[2018-12-28] MEDS ORDERED: ONDANSETRON 2MG/ML, 2ML ONE (12:36)
[2018-12-28] MEDS ORDERED: FAMOTIDINE 20 MG/2 ML ONE (12:36)
[2018-12-28 12:46] LABS: BASOPHILS # (AUTO) 0.09 x10^3/uL (0-0.1); BASOPHILS % (AUTO) 1 % (0-1); EOSINOPHILS # (AUTO) 0.03 x10^3/uL (0-0.4); EOSINOPHILS % (AUTO) 0 % (1-7); LYMPHOCYTES % (AUTO) 15 % (22-44); MD NO; MEAN CORPUSCULAR HEMOGLOBIN 31.9 pg (27.5-34.5); MEAN CORPUSCULAR HGB CONC 33.3 g/dL (33.2-36.2); MEAN CORPUSCULAR VOLUME 95.8 fL (81-97); MEAN PLATELET VOLUME 9.3 fL (7.4-10.4); MONOCYTES % (AUTO) 7 % (2-9); NEUTROPHILS % (AUTO) 77 % (42-75); PLATELET COUNT 276 x10^3/uL (130-400); RED BLOOD COUNT 5.75 x10^6/uL (4.38-5.82)
[2018-12-28 12:55] LABS: ALANINE AMINOTRANSFERASE 15 U/L (12-78); ALBUMIN 4.6 g/dL (3.4-5.0); ANION GAP 11 mmol/L (5-15); CALCIUM 9.3 mg/dL (8.5-10.1); CHLORIDE 99 mmol/L (98-107); CREATININE 1.46 mg/dL (0.7-1.3)
[2018-12-28 12:57] LABS: ALKALINE PHOSPHATASE 132 U/L (45-117); BILIRUBIN,TOTAL 2.8 mg/dL (0.2-1.0); TOTAL PROTEIN 8.9 g/dL (6.4-8.2)
[2018-12-28] MEDS ORDERED: MAALOX/HYOSCYAMINE/LIDOCAINE 45 ML BTL PO ONE (13:00)
[2018-12-28] MEDS ORDERED: FAMOTIDINE 20 MG TABLET PO ONE (13:00)
[2018-12-28] MEDS ORDERED: FAMOTIDINE 20 MG/2 ML IVPush ONE (13:00)
[2018-12-28] MEDS ORDERED: SODIUM CHLORIDE 0.9% 1,000ML IVBOLUS ONE (13:30)
[2018-12-28 13:59] LABS: MICROSCOPIC INDICATED
[2018-12-28 14:03] LABS: CULTURE INDICATED? NO
--- NOTE | 2018-12-28 14:04 | NUR ---
3 P'S ADDRESSED. PT RESTING IN BED IN NAD. VSS. WAITING FOR RESULTS.
--- NOTE | 2018-12-28 14:18 | NUR ---
CHART UP FOR MD RECHECK. PT AWARE.
[2018-12-28] MEDS ORDERED: GABA300C10 PO (14:28)
[2018-12-28] MEDS ORDERED: PANTOPRAZOLE 40 MG IV IVPush SCH (14:30)
[2018-12-28] MEDS ORDERED: PANTOPRAZOLE 40 MG IV ONE (14:34)
[2018-12-28 16:34] VITALS: BP 140/85
[2018-12-28] MEDS: D5%-0.45% NACL 1,000 ML IV SCH (17:05)
[2018-12-28] MEDS ORDERED: ONDANSETRON ODT 4 MG PO PRN (17:30)
[2018-12-28] MEDS ORDERED: LABETALOL 5 MG/ML SYRINGE IVPush PRN (17:30)
[2018-12-28] MEDS ORDERED: ONDANSETRON 2MG/ML, 2ML IVPush PRN (17:30)
[2018-12-28] MEDS ORDERED: GABAPENTIN 300 MG CAPSULE PO PRN (17:30)
[2018-12-28 18:16] LABS: FREE T4 (FREE THYROXINE) 1.48 ng/dL (0.76-1.46)
[2018-12-28 18:53] VITALS: BP 125/76
[2018-12-28 20:45] LABS: CHLORIDE,URINE RANDOM 29 mmol/L; POTASSIUM,URINE RANDOM 20 mmol/L; SODIUM,URINE RANDOM 27 mmol/L
[2018-12-28] MEDS: PANTOPRAZOLE 40 MG IV IVPush SCH (21:23)
[2018-12-29 00:35] VITALS: BP 134/79
[2018-12-29] MEDS: D5%-0.45% NACL 1,000 ML IV SCH ×3 (02:48→17:11)
[2018-12-29 06:11] LABS: BASOPHILS # (AUTO) 0.04 x10^3/uL (0-0.1); BASOPHILS % (AUTO) 0 % (0-1); EOSINOPHILS # (AUTO) 0.04 x10^3/uL (0-0.4); EOSINOPHILS % (AUTO) 0 % (1-7); LYMPHOCYTES # (AUTO) 2.14 x10^3/uL (1-3.4); LYMPHOCYTES % (AUTO) 21 % (22-44); MD NO; MEAN CORPUSCULAR HEMOGLOBIN 32.3 pg (27.5-34.5); MEAN CORPUSCULAR HGB CONC 33.6 g/dL (33.2-36.2); MEAN CORPUSCULAR VOLUME 96.2 fL (81-97); MEAN PLATELET VOLUME 9.7 fL (7.4-10.4); MONOCYTES # (AUTO) 0.92 x10^3/uL (0.2-0.8); MONOCYTES % (AUTO) 9 % (2-9); NEUTROPHILS # (AUTO) 7.21 x10^3/uL (1.8-6.8); NEUTROPHILS % (AUTO) 70 % (42-75); PLATELET COUNT 218 x10^3/uL (130-400); RED CELL DISTRIBUTION WIDTH 15.1 % (9.4-14.8)
[2018-12-29 06:13] LABS: CHLORIDE 104 mmol/L (98-107)
[2018-12-29 06:30] LABS: ALANINE AMINOTRANSFERASE 12 U/L (12-78); ALBUMIN 3.5 g/dL (3.4-5.0); ALKALINE PHOSPHATASE 100 U/L (45-117); ANION GAP 7 mmol/L (5-15); BILIRUBIN,TOTAL 2.6 mg/dL (0.2-1.0); CALCIUM 8.3 mg/dL (8.5-10.1); CREATININE 1.01 mg/dL (0.7-1.3); THYROID STIMULATING HORMONE 0.289 mIU/L (0.358-3.740); TOTAL PROTEIN 6.8 g/dL (6.4-8.2)
[2018-12-29 07:55] VITALS: BP 132/73
[2018-12-29] MEDS ORDERED: POTASSIUM CHLORIDE 20 MEQ TAB.ER.PRT PO ONE ×2 (08:00→11:35)
[2018-12-29] MEDS: PANTOPRAZOLE 40 MG IV IVPush SCH (08:04)
[2018-12-29] MEDS ORDERED: PROMETHAZINE 25 MG/ML, 1ML IM PRN (09:30)
[2018-12-29 14:13] VITALS: BP 141/65
[2018-12-29 18:58] VITALS: BP 134/75
[2018-12-29 20:16] LABS: AMPHETAMINE SCREEN, URINE Negative (Negative); BARBITURATE SCREEN, URINE Negative (Negative); BENZODIAZEPINE SCREEN, URINE Negative (Negative); CANNABINOID SCREEN, URINE Positive (Negative); COCAINE SCREEN, URINE Negative (Negative); METHADONE SCREEN, URINE Negative (Negative); OPIATE SCREEN, URINE Negative (Negative)
[2018-12-29] MEDS: ESOMEPRAZOLE 40 MG IV IVPush SCH (21:43)
[2018-12-30 01:06] VITALS: BP 107/67
[2018-12-30] MEDS: D5%-0.45% NACL 1,000 ML IV SCH ×3 (02:17→18:15)
[2018-12-30 05:29] LABS: BASOPHILS # (AUTO) 0.03 x10^3/uL (0-0.1); BASOPHILS % (AUTO) 0 % (0-1); EOSINOPHILS # (AUTO) 0.09 x10^3/uL (0-0.4); EOSINOPHILS % (AUTO) 1 % (1-7); LYMPHOCYTES # (AUTO) 2.25 x10^3/uL (1-3.4); LYMPHOCYTES % (AUTO) 29 % (22-44); MD NO; MEAN CORPUSCULAR HEMOGLOBIN 32.1 pg (27.5-34.5); MEAN CORPUSCULAR HGB CONC 33.1 g/dL (33.2-36.2); MEAN CORPUSCULAR VOLUME 96.9 fL (81-97); MEAN PLATELET VOLUME 9.8 fL (7.4-10.4); MONOCYTES # (AUTO) 0.69 x10^3/uL (0.2-0.8); MONOCYTES % (AUTO) 9 % (2-9); NEUTROPHILS # (AUTO) 4.71 x10^3/uL (1.8-6.8); NEUTROPHILS % (AUTO) 61 % (42-75); PLATELET COUNT 180 x10^3/uL (130-400); RED BLOOD COUNT 4.76 x10^6/uL (4.38-5.82)
[2018-12-30 05:44] LABS: CHLORIDE 106 mmol/L (98-107)
[2018-12-30 05:51] LABS: ALANINE AMINOTRANSFERASE 12 U/L (12-78); ALBUMIN 3.2 g/dL (3.4-5.0); ALKALINE PHOSPHATASE 91 U/L (45-117); ANION GAP 7 mmol/L (5-15); BILIRUBIN,TOTAL 1.6 mg/dL (0.2-1.0); CALCIUM 7.9 mg/dL (8.5-10.1); CREATININE 0.98 mg/dL (0.7-1.3); TOTAL PROTEIN 6.3 g/dL (6.4-8.2)
[2018-12-30] MEDS ORDERED: POTASSIUM CHLORIDE 20 MEQ TAB.ER.PRT PO ONE ×2 (07:30→11:30)
[2018-12-30] MEDS: ESOMEPRAZOLE 40 MG IV IVPush SCH (08:47)
[2018-12-30] MEDS: NEUTRA PHOS K 250 MG TABLET PO SCH ×3 (08:47→16:24)
[2018-12-30 08:48] VITALS: BP 137/72
[2018-12-30 16:10] VITALS: BP 122/70
[2018-12-30 19:38] VITALS: BP 121/70
[2018-12-30] MEDS: PANTOPROZOLE 40MG TABLET PO SCH (20:30)
[2018-12-31] MEDS: D5%-0.45% NACL 1,000 ML IV SCH (02:04)
[2018-12-31 02:06] VITALS: BP 131/71
[2018-12-31 06:01] LABS: BASOPHILS # (AUTO) 0.03 x10^3/uL (0-0.1); BASOPHILS % (AUTO) 0 % (0-1); EOSINOPHILS # (AUTO) 0.14 x10^3/uL (0-0.4); EOSINOPHILS % (AUTO) 2 % (1-7); LYMPHOCYTES # (AUTO) 1.94 x10^3/uL (1-3.4); LYMPHOCYTES % (AUTO) 29 % (22-44); MD NO; MEAN CORPUSCULAR HEMOGLOBIN 32.3 pg (27.5-34.5); MEAN CORPUSCULAR HGB CONC 33.4 g/dL (33.2-36.2); MEAN CORPUSCULAR VOLUME 96.9 fL (81-97); MEAN PLATELET VOLUME 9.6 fL (7.4-10.4); MONOCYTES # (AUTO) 0.52 x10^3/uL (0.2-0.8); MONOCYTES % (AUTO) 8 % (2-9); NEUTROPHILS # (AUTO) 4.12 x10^3/uL (1.8-6.8); NEUTROPHILS % (AUTO) 61 % (42-75); PLATELET COUNT 154 x10^3/uL (130-400); RED BLOOD COUNT 4.31 x10^6/uL (4.38-5.82); RED CELL DISTRIBUTION WIDTH 14.8 % (9.4-14.8)
[2018-12-31 06:18] LABS: CHLORIDE 109 mmol/L (98-107)
[2018-12-31 06:29] LABS: ALANINE AMINOTRANSFERASE 11 U/L (12-78); ALKALINE PHOSPHATASE 80 U/L (45-117); ANION GAP 8 mmol/L (5-15); BILIRUBIN,TOTAL 0.9 mg/dL (0.2-1.0); CALCIUM 7.9 mg/dL (8.5-10.1); CREATININE 0.87 mg/dL (0.7-1.3); TOTAL PROTEIN 5.8 g/dL (6.4-8.2)
[2018-12-31] MEDS ORDERED: ONDA4TAB7 PO (06:40)
[2018-12-31 07:08] VITALS: BP 147/89
[2018-12-31] MEDS: PANTOPROZOLE 40MG TABLET PO SCH (07:42)
== END 2018-12-31 09:56 | disposition home or self-care (01) | DRG 683 ==
LOC: ED 13:21 → EDIP 14:28 → 3NE 15:36 → DCLOUNGE 12-31 09:43
PROVIDERS: ADMIT Internal Medicine; ATTEND Internal Medicine
DX: N17.9 Acute kidney failure, unspecified (principal); E87.1 Hypo-osmolality and hyponatremia; R17 Unspecified jaundice; D75.1 Secondary polycythemia; D72.829 Elevated white blood cell count, unspecified; Z66 Do not resuscitate; E05.90 Thyrotoxicosis, unspecified without thyrotoxic crisis or storm; E86.0 Dehydration; F17.210 Nicotine dependence, cigarettes, uncomplicated; H91.90 Unspecified hearing loss, unspecified ear; K21.0 Gastro-esophageal reflux disease with esophagitis; Z80.3 Family history of malignant neoplasm of breast; Z80.52 Family history of malignant neoplasm of bladder
CPT/HCPCS: 36415; 99285; J3490; 76700; 80053; 80307; 81001; 82436; 83690; 83735; 84100; 84133; 84300; 84439; 84443; 85025; 93005; 96374; 96375; G0378; J2405; J2550; Q0162; C9113; J7030